=== PATIENT | male | born 1965 | race Caucasian/White ===

== ENCOUNTER 2018-12-13 12:29 | Outpatient (CLI) | payer MEDICAID, SELFPAY ==
[2018-12-13 13:56] LABS: ALT 22 U/L (12-78); AST 16 U/L (15-37); Albumin 3.9 g/dL (3.4-5.0); Alkaline Phosphatase 90 U/L (46-116); Anion Gap 9.1 mmol/L (3-11); BUN 16 mg/dL (7-18); Bilirubin, Total 0.3 mg/dL (0.2-1.0); CO2 27.9 mmol/L (21.0-32.0); CREATININE 0.92 mg/dL (0.70-1.30); Calcium 9.5 mg/dL (8.5-10.1); Chloride 102 mmol/L (98-107); Cholesterol 264 mg/dL (50-200); Glucose 86 mg/dL (70-100); HDL Cholesterol 37 mg/dL (40-60); LDL CHOLESTEROL 173 mg/dL (<100); Sodium 139 mmol/L (136-145); Total Protein 7.5 g/dL (6.4-8.2); Triglyceride 326 mg/dL (30-150)
[2018-12-14 11:16] LABS: HIV-1/2 Ag & Ab Screen Negative (NEGAT)
[2018-12-14 11:19] LABS: Hepatitis C Ab w Rflx HCV PCR Negative (NEGAT)
[2018-12-14 12:49] LABS: Syphilis Serology (RPR) Negative (Negative)
== END 2018-12-13 12:49 ==
PROVIDERS: PCP Family Medicine; Visit Provider Family Medicine
DX: Z13.220 Encounter for screening for lipoid disorders (principal); Z13.228 Encounter for screening for other metabolic disorders; Z11.4 Encounter for screening for human immunodeficiency virus [HIV]; Z11.3 Encounter for screening for infections with a predominantly sexual mode of transmission; Z11.59 Encounter for screening for other viral diseases
CPT/HCPCS: 36415; 80053; 80061; 83721; 86803; 87389; 86592

== ENCOUNTER 2019-01-21 07:59 | Day surgery (SDC) | payer MEDICAID, SELFPAY ==
--- NOTE | 2019-01-21 06:52 | W.COLOREPORT ---
Date of service: 01/21/19 Time of Service: 09:52 Colonoscopy Report Date of procedure: 01/21/19 Pre-op diagnosis general: Colon Cancer Screening Post-op diagnosis procedure note: other (Multiple colon polyps) Procedure: Colonoscopy with polypectomy by cold forceps Surgeon: Anna Luevano Anesthesia proc note operative: other (general/ ASA 2/ Rosina Breen, CHRISTIANO) Estimated blood loss (mL): 5 Pathology: other (multiple polyps) Complications: None Disposition: same day Indications: Mr. Alvarez is a pleasant 53 year old male seen in the office for his first screening colonoscopy. Risks, benefits and complications have been reviewed. Complications include but are not limited to bleeding, pain, perforation, missed small lesion/polyp, sore throat, aspiration and adverse reaction to the medications. Questions were entertained and answered to their satisfaction and they wished to proceed. No guarantees were given or implied. Prep: Miralax/Dulcolax Procedure Start Time: 09:52 Procedure End Time: 10:28 Retraction Time: 22 minutes Findings: Multiple polyps removed with cold forceps Procedure Description: After informed consent was obtained the patient was taken to the procedure room and placed in a left decubitous position. Monitors were applied and a time out was done. The patients name, date of , procedure, allergies to medications and metal in their body was reviewed. The patient was then sedated. Once sedated and comfortable a rectal exam was done. External exam was normal. Internal exam revealed a normal sphincter tone and no palpable masses. The prostate felt smooth. The scope was then introduced and retro-flexed. No internal hemorrhoids were identified. There were no masses or polyps. The scope was then advanced to the cecum without difficulty. The TI and appendiceal orifice were identified. The prep was good. The scope was then slowly retracted over 22 minutes back into the rectum. Polyps were removed with cold forceps in the transverse colon x2, sigmoid colon x6 and rectal polyps x 8. A biopsy was done in the transverse colon. There were no diverticula. The scope was removed and the patient was woken up and taken back to Same day surgery in stable condition. The patient tolerated the procedure well and there were no immediate complications. Follow up: The patient should follow up in 3-5 years unless they develop changes in bowel habits or other new gastrointestinal complaints.
--- NOTE | 2019-01-21 06:53 | W.PM.DSUDISC ---
Discharge Plan Disposition Patient Disposition: HOME Condition: Good Discharge Details Reason For Visit: Screening Colonoscopy Attending Provider: Anna Luevano Primary Care Provider: Dayron Link Home Meds and New Rx's Prescriptions: Continued quetiapine [Seroquel] 100 mg tablet 100 mg PO HS RF: 0 fluoxetine 20 mg capsule 20 mg PO DAILY RF: 0 prazosin 2 mg capsule 2 mg PO QHS RF: 0 omeprazole 20 mg capsule,delayed release(DR/EC) 20 mg PO DAILY Qty: 60 RF: 3 Discontinued polyethylene glycol 3350 17 gram/dose powder 238 g PO ONCE Qty: 238 RF: 0 bisacodyl [Dulcolax (bisacodyl)] 5 mg tablet,delayed release (DR/EC) 5 mg PO ONCE Qty: 4 RF: 0 Discharge Instructions Instructions: Colonoscopy (DC), Colorectal Polyps (DC) Additional Instructions: Findings: Multiple small polyps Follow up:3-5 years depending on final pathology Please call if you develop: fevers >101.5 Nausea or Vomiting Abdominal pain that is not transient DAY SURGERY UNIT POST COLONOSCOPY INSTRUCTIONS 1. Because there will be medication in your system for the next 24 hours, you may feel a little sleepy. Your coordination will be affected. Therefore: a. Do not drive or operate dangerous equipment for 24 hours. b. Do not drink alcohol beverages for 24 hours (not even beer). c. Plan to go home and rest for the day. 2. Generally there are no restrictions on your activity after a day or so has gone by, but you may feel a bit fatigued for a few days. 3 After you arrive home you may have a light meal and return to a normal diet as you can tolerate it without feeling sick to your stomach. 4. After surgery, you may feel pain or discomfort. This should be only transient, but if it persists please contact your doctor. 5. If there are any questions regarding the findings of your procedure, please feel free to contact your doctor. 6. If you are unable to contact your doctor with a problem, contact the hospital at [phone]. 7. Continue all your regular medications unless directed otherwise. I understand the above instructions and have no questions. Signature of Patient or Responsible Adult Escort Date/Time Name of Responsible Adult Escort Signature of Nurse Date/Time Stand Alone Forms: Kimberly Villanueva (JERODU) Activity:: Activity as Tolerated Diet:: As Tolerated Discharge Orders Discharge Orders: Discharge Order (Routine); Ordered 01/21/19 Ordered By: Anna Luevano DS: Diagnosis Discharge Diagnosis (1) S/P colonoscopy: Status: Acute (2) Colorectal polyps: Status: Acute
[2019-01-21 08:14] VITALS: BP 118/80; PULSE 66; RESP 18; TEMP 36.1; O2SAT 97
[2019-01-21] MEDS: Lactated Ringers 1,000 ML 80 ML IV ×2 (08:37→10:32)
--- NOTE | 2019-01-21 09:50 | BOWEL_PTH ---
PATIENT: IRINEO GAFFNEY LOC: [facility] U#:[id number] AGE/SX: 53/M ROOM: RE01/21/[address]: Anna Luevano MD : [id number] BED: DIS: 01/21/2019 SPEC #: [id number] RECD: 01/21/19 12:57 STATUS: ENEDELIA KHOURY #: [id number] MARCELL: 01/21/19 09:[address]: Anna Luevano DEPT: Surgical Specimen RECD BY: Dixie Schaefer ENTERED: 01/21/19 12:58 SP TYPE: Bowel OTHR DR: Dayron Link DO Tissues: 1 - BIOPSY BOWEL 2 - BIOPSY BOWEL 3 - BIOPSY BOWEL 4 - BIOPSY BOWEL Procedures: GROSS AND MICRO LEVEL 4 Comments: [id number]
[2019-01-21 11:15] VITALS: BP 140/92; PULSE 65; RESP 16; TEMP 35.3; O2SAT 99
== END 2019-01-21 11:25 | disposition home or self-care (01) ==
LOC: SUR 07:59
PROVIDERS: PCP Family Medicine; Visit Provider Surgery
PROC: 0DJD8ZZ Inspection of Lower Intestinal Tract, Via Natural or Artificial Opening Endoscopic (ICD-10-PCS; CPT 45378; principal; 2019-01-21 09:45)
DX: Z12.11 Encounter for screening for malignant neoplasm of colon (principal); D12.3 Benign neoplasm of transverse colon; K63.5 Polyp of colon; K62.1 Rectal polyp; K21.9 Gastro-esophageal reflux disease without esophagitis
CPT/HCPCS: 45380; 88305